=== PATIENT | female | born 1995 | race American Indian/Alaskan Native ===

== ENCOUNTER 2019-06-06 20:24 | Emergency (ER) | payer SELFPAY ==
[2019-06-06 22:51] LABS: Basophils # (Auto) 0.1 K/mm3 (0.0-0.1); Basophils % (Auto) 0.9 % (0.0-1.8); Eosinophils # (Auto) 0.2 K/mm3 (0.0-0.4); Eosinophils % (Auto) 2.7 % (0.0-4.3); Hematocrit 38.5 % (30.3-42.9); Hemoglobin 12.2 gm/dl (10.1-14.3); Lymphocytes # (Auto) 3.3 K/mm3 (1.2-5.4); Lymphocytes % (Auto) 39.3 % (13.4-35.0); Mean Corpuscular HGB Conc 32 % (30-34); Mean Corpuscular Volume 73 fl (79-97); Monocytes # (Auto) 0.5 K/mm3 (0.0-0.8); Monocytes % (Auto) 6.4 % (0.0-7.3); Platelet Count 364 K/mm3 (140-440); Red Blood Count 5.27 M/mm3 (3.65-5.03); Red Cell Distribution Width 16.8 % (13.2-15.2)
[2019-06-06 23:15] LABS: BUN/Creatinine Ratio 17; Blood Urea Nitrogen 10 mg/dL (7-17); Calcium 9.1 mg/dL (8.4-10.2); Hemolysis Index 6
[2019-06-06] MEDS ORDERED: traMADol 50 MG TAB PO ONE (23:34)
--- NOTE | 2019-06-06 23:43 | Emergency Department Report ---
ED Abdominal Pain HPI - General Chief Complaint: Abdominal Pain Stated Complaint: ABD PAIN Time Seen by Provider: 06/06/19 23:29 Source: patient Mode of arrival: Ambulatory Limitations: No Limitations - History of Present Illness Initial Comments: Ms. Garcia is a 23 y/o aaf who presents for LLQ pain 4/10 x 3 days , symptoms include pain and diarrhea , states intermiitent constipation , pt is tolerating po intake , there is no n/v , no fever or chills. Symptoms are exacerbated by nothing, symptoms are relieved by nothing tried. MD Complaint: abdominal pain Onset/Timin -: days(s) Location: LLQ Radiation: LLQ Migration to: LLQ Severity: moderate Severity scale (0 -10): 4 Quality: cramping, sharp Consistency: intermittent Improves With: nothing Worsens With: nothing Associated Symptoms: diarrhea. denies: dysuria, melena - Related Data LMP Date: 05/13/19 Previous Rx's Medication Instructions Recorded Last Taken Type Ibuprofen [Motrin 800 MG tab] 800 mg PO Q8HR PRN #30 tablet 06/07/19 Unknown Rx Allergies Allergy/AdvReac Type Severity Reaction Status Date / Time No Known Allergies Allergy Verified 08/22/18 16:23 ED Review of Systems ROS: Stated complaint: ABD PAIN Other details as noted in HPI Constitutional: denies: chills, fever Eyes: denies: eye pain, eye discharge, vision change ENT: denies: ear pain, throat pain Respiratory: denies: cough, shortness of breath, wheezing Cardiovascular: denies: chest pain, palpitations Endocrine: no symptoms reported Gastrointestinal: abdominal pain, diarrhea. denies: nausea, vomiting, melena Genitourinary: denies: urgency, dysuria, discharge Musculoskeletal: denies: back pain, joint swelling, arthralgia Skin: denies: rash, lesions Neurological: as per HPI Psychiatric: denies: anxiety, depression Hematological/Lymphatic: denies: easy bleeding, easy bruising ED Past Medical Hx - Social History Smoking Status: Current Every Day Smoker Substance Use Type: None - Medications Home Medications: Home Medications Medication Instructions Recorded Confirmed Last Taken Type Ibuprofen [Motrin 800 MG tab] 800 mg PO Q8HR PRN #30 tablet 06/07/19 Unknown Rx ED Physical Exam - General Limitations: No Limitations General appearance: alert, in no apparent distress - Head Head exam: Present: atraumatic, normocephalic - Eye Eye exam: Present: normal appearance, PERRL, EOMI Pupils: Present: normal accommodation - ENT ENT exam: Present: mucous membranes moist - Neck Neck exam: Present: normal inspection - Respiratory Respiratory exam: Present: normal lung sounds bilaterally. Absent: respiratory distress, wheezes, stridor, chest wall tenderness - Cardiovascular Cardiovascular Exam: Present: regular rate, normal rhythm, normal heart sounds. Absent: systolic murmur, diastolic murmur, rubs, gallop - GI/Abdominal GI/Abdominal exam: Present: soft, tenderness (LLQ), normal bowel sounds. Absent: distended, guarding, rebound, rigid, bruit, hernia - Rectal Rectal exam: Present: deferred - Extremities Exam Extremities exam: Present: normal inspection, full ROM. Absent: tenderness - Back Exam Back exam: Present: normal inspection, full ROM. Absent: tenderness, CVA tenderness (R), CVA tenderness (L) - Neurological Exam Neurological exam: Present: alert, oriented X3, CN II-XII intact, normal gait - Psychiatric Psychiatric exam: Present: normal affect, normal mood - Skin Skin exam: Present: warm, dry, intact, normal color. Absent: rash ED Course Vital Signs 06/06/19 20:40 Temperature 98.0 F Pulse Rate 94 H Respiratory 20 Rate Blood Pressure 144/90 O2 Sat by Pulse 98 Oximetry ED Medical Decision Making - Lab Data Result diagrams: 06/06/19 22:34 06/06/19 22:34 - Radiology Data Radiology results: report reviewed, image reviewed Ordering Physician: SUSHANT GARCIA NP Date of Service: 06/06/19 Procedure(s): XR abdomen 1V ap Accession Number(s): [id number] cc: SUSHANT GARCIA NP Fluoro Time In Minutes: ABDOMEN, 2 VIEWS INDICATION / CLINICAL INFORMATION: abd pain. COMPARISON: None available. FINDINGS: Supine and erect views of the abdomen demonstrate grossly normal bowel gas pattern. No evidence of fecal impaction. No evidence for bowel obstruction. IMPRESSION: No acute finding. . Signer Name: Jerrica Light MD Signed: 06/07/2019 12:09 AM Workstation Name: [id number] Transcribed By: JR Dictated By: Jerrica Light MD Electronically Authenticated By: Jerrica Light MD Signed Date/Time: 06/07/198 DD/ TD/TT: - Medical Decision Making There is no significant labs abnormals, kub: normal, pt declines UA states she has no urinary symptoms and that she has to go now.. vital signs are normal, there is no fever or chills no n/v no vaginal discharge or bleedking ,no back pain, no sob no cp. Pt is tolerating po intake without n/v , There is no previous narcotic rx fills via [facility]. However behavior is similar to alternative gain for pain medication. Plan, dc to self with rx for nsaids prn pain , follow up with pcp ez. Will return to ed if symptosm worsen. pt is currently a/o x 3, ambulatory with steady gait and nad. Critical care attestation.: If time is entered above; I have spent that time in minutes in the direct care of this critically ill patient, excluding procedure time. ED Disposition Clinical Impression: Abdominal pain Qualifiers: Abdominal location: left lower quadrant Qualified Code(s): R10.32 - Left lower quadrant pain Disposition: DC-01 TO HOME OR SELFCARE Is pt being admited?: No Does the pt Need Aspirin: No Condition: Stable Instructions: Abdominal Pain (ED) Prescriptions: Ibuprofen [Motrin 800 MG tab] 800 mg PO Q8HR PRN #30 tablet PRN Reason: pain Referrals: DIANDRA LARA MD [Primary Care Provider] - 3-5 Days Forms: Work/School Release Form(ED) Time of Disposition: 01:42
--- NOTE | 2019-06-07 00:13 | XRay Report ---
ABDOMEN, 2 VIEWS INDICATION / CLINICAL INFORMATION: abd pain. COMPARISON: None available. FINDINGS: Supine and erect views of the abdomen demonstrate grossly normal bowel gas pattern. No evid ence of fecal impaction. No evidence for bowel obstruction. IMPRESSION: No acute finding. . Signer Name: Jerrica Light MD Signed: 06/07/2019 12:09 AM Workstation Name: [email or web address]
[2019-06-07 01:51] VITALS: BP 124/82
== END 2019-06-07 01:51 | disposition home or self-care (01) ==
LOC: ED 20:24
DX: R10.32 Left lower quadrant pain (principal); F17.200 Nicotine dependence, unspecified, uncomplicated; Z79.899 Other long term (current) drug therapy
CPT/HCPCS: 36415; 74018; 80048; 83690; 84702; 85025

== ENCOUNTER 2019-09-25 22:37 | Emergency (ER) | payer SELFPAY ==
--- NOTE | 2019-09-25 23:12 | Emergency Department Report ---
- General Chief Complaint: Upper Respiratory Infection Stated Complaint: COUGH NASAL CONGESTION SOCORRO Time Seen by Provider: 09/25/19 23:02 Source: patient Mode of arrival: Ambulatory Limitations: No Limitations - History of Present Illness Initial Comments: Patient is a 24-year-old female presents emergency room with complaints of a productive cough that began about 4 to 5 days ago. She has associated nasal congestion. She states that the nasal congestion is making it difficult to breathe so she is having to breathe out her mouth. She denies any fever, nausea, vomiting, diarrhea, ear pain, sore throat. She states that she has irregular menstrual cycles but denies any possibility of being . She states that her past medical history of childhood asthma. She states that she smokes marijuana 2-3 times per week. She denies any tobacco use. - Related Data Previous Rx's Medication Instructions Recorded Last Taken Type Ibuprofen [Motrin 800 MG tab] 800 mg PO Q8HR PRN #30 tablet 06/07/19 Unknown Rx Amoxicillin/Potassium Clav 1 each PO BID 10 Days #20 tablet 09/25/19 Unknown Rx [Augmentin 875-125 Tablet] Fluticasone [Flonase] 1 spray NS QDAY #1 bottle 09/25/19 Unknown Rx Prednisone [predniSONE 10 mg 10 mg PO .TAPER #1 tab.ds.pk 09/25/19 Unknown Rx (6-Day Pack, 21 Tabs)] guaiFENesin ER [Mucinex ER] 600 mg PO Q12H #14 tablet.er 09/25/19 Unknown Rx Allergies Allergy/AdvReac Type Severity Reaction Status Date / Time No Known Allergies Allergy Verified 08/22/18 16:23 ED Review of Systems ROS: Stated complaint: COUGH NASAL CONGESTION SOCORRO Other details as noted in HPI Comment: All other systems reviewed and negative ED Past Medical Hx - Past Medical History Previous Medical History?: No - Surgical History Past Surgical History?: No - Social History Smoking Status: Never Smoker Substance Use Type: Marijuana - Medications Home Medications: Home Medications Medication Instructions Recorded Confirmed Last Taken Type Ibuprofen [Motrin 800 MG tab] 800 mg PO Q8HR PRN #30 tablet 06/07/19 Unknown Rx Amoxicillin/Potassium Clav 1 each PO BID 10 Days #20 tablet 09/25/19 Unknown Rx [Augmentin 875-125 Tablet] Fluticasone [Flonase] 1 spray NS QDAY #1 bottle 09/25/19 Unknown Rx Prednisone [predniSONE 10 mg 10 mg PO .TAPER #1 tab.ds.pk 09/25/19 Unknown Rx (6-Day Pack, 21 Tabs)] guaiFENesin ER [Mucinex ER] 600 mg PO Q12H #14 tablet.er 09/25/19 Unknown Rx ED Physical Exam - General Limitations: No Limitations General appearance: alert, in no apparent distress - Head Head exam: Present: atraumatic, normocephalic - Eye Eye exam: Present: normal appearance - ENT ENT exam: Present: normal orophraynx, mucous membranes moist, other (left TM is erythematous, TM is intact, normal left ear canal, right TM and canal are normal, no tonsilar hypertrophy or exudates, she has clear nasal congestion in bilateral nares, no sinus ttp) - Respiratory Respiratory exam: Present: normal lung sounds bilaterally. Absent: respiratory distress, wheezes, rales, rhonchi, stridor, chest wall tenderness, accessory muscle use, decreased breath sounds, prolonged expiratory - Cardiovascular Cardiovascular Exam: Present: regular rate, normal rhythm, normal heart sounds. Absent: systolic murmur, diastolic murmur, rubs, gallop - Neurological Exam Neurological exam: Present: alert, oriented X3 - Psychiatric Psychiatric exam: Present: normal affect, normal mood - Skin Skin exam: Present: warm, dry, intact ED Course Vital Signs 09/25/19 09/25/19 22:50 23:27 Temperature 98.8 F 98.9 F Pulse Rate 106 H 100 H Respiratory 22 16 Rate Blood Pressure 168/105 Blood Pressure 140/90 [Right] O2 Sat by Pulse 96 99 Oximetry ED Medical Decision Making - Lab Data Vital Signs 09/25/19 09/25/19 22:50 23:27 Temperature 98.8 F 98.9 F Pulse Rate 106 H 100 H Respiratory 22 16 Rate Blood Pressure 168/105 Blood Pressure 140/90 [Right] O2 Sat by Pulse 96 99 Oximetry - Medical Decision Making Patient is a 24-year-old female presents emergency room with complaints of a productive cough that began about 4 to 5 days ago. She has associated nasal congestion. She states that the nasal congestion is making it difficult to breathe so she is having to breathe out her mouth. She denies any fever, nausea, vomiting, diarrhea, ear pain, sore throat. She states that she has irregular menstrual cycles but denies any possibility of being . She states that her past medical history of childhood asthma. She states that she smokes marijuana 2-3 times per week. She denies any tobacco use. initial vitals with elevated HR and BP which improved upon repeat. on exam: left TM is erythematous, TM is intact, normal left ear canal, right TM and canal are normal, no tonsilar hypertrophy or exudates, she has clear nasal congestion in bilateral nares, no sinus ttp, breath sounds are clear bilaterally, no wheezing, no rales, no rhonchi. Examination consistent with left otitis media and acute bronchitis. Patient given prescription for Augmentin, Flonase, Mucinex, Medrol Dosepak. advised pt Please use medication as prescribed. Please do nasal saline washes then use Flonase nasal spray. Increase your water intake. Follow-up with your primary care doctor. Return to the emergency room for any new or worsening symptoms. - Differential Diagnosis URI, pneumonia, bronchitis, otitis, pharyngitis, sinusitis, viral syndrome Critical care attestation.: If time is entered above; I have spent that time in minutes in the direct care of this critically ill patient, excluding procedure time. ED Disposition Clinical Impression: Left otitis media Qualifiers: Otitis media type: suppurative Chronicity: acute Recurrence: non-recurrent Spontaneous tympanic membrane rupture: without spontaneous rupture Qualified Code(s): H66.002 - Acute suppurative otitis media without spontaneous rupture of ear drum, left ear Acute bronchitis Qualifiers: Bronchitis organism: unspecified organism Qualified Code(s): J20.9 - Acute bronchitis, unspecified Disposition: - TO HOME OR SELFCARE Is pt being admited?: No Does the pt Need Aspirin: No Condition: Stable Instructions: Otitis Media (ED), Acute Bronchitis (ED) Additional Instructions: Please use medication as prescribed. Please do nasal saline washes then use Flonase nasal spray. Increase your water intake. Follow-up with your primary care doctor. Return to the emergency room for any new or worsening symptoms. Prescriptions: Amoxicillin/Potassium Clav [Augmentin 875-125 Tablet] 1 each PO BID 10 Days #20 tablet Fluticasone [Flonase] 1 spray NS QDAY #1 bottle guaiFENesin ER [Mucinex ER] 600 mg PO Q12H #14 tablet.er Prednisone [predniSONE 10 mg (6-Day Pack, 21 Tabs)] 10 mg PO .TAPER #1 tab.ds.pk Referrals: SEMAJ RIZO MD [Staff Physician] - 2-3 Days [facility] [Outside] - 2-3 Days [facility] [Outside] - 2-3 Days [facility] [Outside] - 2-3 Days Forms: Work/School Release Form(ED) Time of Disposition: 23:10 Print Language: LATVIAN
[2019-09-25 23:28] VITALS: BP 140/90
== END 2019-09-25 23:28 | disposition home or self-care (01) ==
LOC: ED 22:37
DX: H66.002 Acute suppurative otitis media without spontaneous rupture of ear drum, left ear (principal); J20.9 Acute bronchitis, unspecified; F12.10 Cannabis abuse, uncomplicated
CPT/HCPCS: 99282